=== PATIENT | female | born 1995 | race Caucasian/White ===

== ENCOUNTER → 2016-07-12 | Outpatient (CLI) | payer BC ==
[~2016-07-12] MED LIST: ADAL40KI IM; AMOX875T PO; BNT10 PO; DICY10CA12 PO; IRON PO; MESA1.2T PO; MRC50 PO; NORE1TAB50 PO
[2016-07-12 11:08] LABS: BASO % 0.3 %; BASO ABS # 0.03 K/uL (0-0.2); COMPLETE YES; HEMATOCRIT 41.6 % (37-47); IG% 0.3 %; LYMPH % 13.5 %; LYMPH ABS # 1.49 K/uL (1.2-3.4); MEAN CELL VOLUME 89.5 fL (80-100); MEAN CORPUSCULAR HEMOGLOBIN 30.8 pg (25-34); MEAN CORPUSCULAR HGB CONC 34.4 g/dl (32-36); MEAN PLATELET VOLUME 10.4 fL (7.4-10.4); MONO % 8.9 %; PLATELET COUNT 241 K/uL (130-400); RED BLOOD COUNT 4.65 M/uL (4.2-5.4); WHITE BLOOD COUNT 11.01 K/uL (4.8-10.8)
[2016-07-12 11:44] LABS: ALT/SGPT 19 U/L (12-78); AST/SGOT 13 U/L (15-37); BLOOD UREA NITROGEN 8 mg/dl (7-18); BUN/CREATININE RATIO 11.5 (10-20); CALCIUM 9.5 mg/dl (8.5-10.1); CARBON DIOXIDE 28 mmol/L (21-32); CHLORIDE 104 mmol/L (98-107); CREATININE 0.72 mg/dl (0.60-1.20); GLUCOSE 101 mg/dl (70-99); POTASSIUM 3.7 mmol/L (3.5-5.1); SODIUM 140 mmol/L (136-145)
[2016-07-12 11:47] LABS: ALB/GLOB RATIO 1.1 (0.9-2); ALKALINE PHOSPHATASE 65 U/L (45-117); C-REACTIVE PROTEIN < 0.29 mg/dl (0-0.29)
== END | disposition home or self-care (01) ==
LOC: C.LAB1850 10:28
PROVIDERS: ATTEND Internal Medicine
DX: K51.90 Ulcerative colitis, unspecified, without complications (principal)

== ENCOUNTER 2016-09-03 20:38 | Emergency (ER) | payer BC ==
[~2016-09-03] VITALS: Ht 160 cm; Wt 64.4 kg
[~2016-09-03 20:38] MED LIST changes: -AMOX875T PO; -DICY10CA12 PO
[2016-09-03 20:43] VITALS: TEMP 37.2; Ht 160 cm; Wt 64.4 kg
--- NOTE | 2016-09-03 21:11 | EMERGENCY ROOM VISIT NOTE ---
History First contact with patient: 20:57 Chief Complaint: BITE Stated Complaint: SWOLLEN L HAND History of Present Illness The patient is a 20 year old female who presents to the Emergency Room with complaints of cat Bite to the left hand. The patient states that her roommate' s cat bit her hand yesterday around 1 PM. The cat's vaccinations are up-to- date. She was seen at the [facility] on campus and was given a tetanus shot. She was not started on antibiotics. She has developed redness and swelling to the left hand. The patient does take Humira and mercaptopurine. The patient denies any fevers. She denies any streaking. She denies any discharge. She denies any pain currently. She denies any nausea or vomiting. Review of Systems A 10 system review of systems was completed with positives and pertinent negatives listed in the HPI. Past Medical/Surgical History Medical Problems: (1) Colitis (2) Ulcerative colitis Surgical Problems: (1) History of tonsillectomy Family History Diabetes mellitus Heart disease Hypertension Social History Smoking Status: Never Smoker Marital Status: single Housing Status: lives with family Occupation Status: student Current/Historical Medications Scheduled Adalimumab (Humira Pen), 1 DOSE IM [id number] Amoxicillin & Pot Clavulanate (Augmentin 875-125 mg), 1 TAB PO BID Dicyclomine HCl (Dicyclomine HCl), 10 MG PO BID Mercaptopurine (Mercaptopurine), 0.5 TAB PO QAM Mesalamine (Lialda), 2 TAB PO BID Norethindrone (Contraceptive) (Norethindrone), TAB PO DAILY [Iron], 65 MG PO QAM Allergies Coded Allergies: No Known Allergies (Verified , 09/03/16) Physical Exam Vital Signs Date Time Temp Pulse Resp B/P Pulse Ox O2 Delivery O2 Flow Rate FiO2 09/03/16 20:43 37.2 86 18 122/76 99 Room Air Physical Exam VITALS: Vitals are noted on the nurse's note and reviewed by myself. Vital signs stable. Patient is afebrile. GENERAL: This is a 20-year-old female, in no acute distress, nondiaphoretic, well-developed well-nourished. SKIN: There are multiple superficial scratches to the left forearm. There are multiple puncture wounds to the left thumb and left index finger and left hand. There is minimal erythema and minimal swelling. There is no drainage. There is no tenting of the skin. Capillary reflex less than 2 seconds. HEAD: Normocephalic atraumatic. EARS: The external ears are normal in appearance. EYES: Pupils equal round and reactive to light and accommodation. Conjunctivae without injection, sclerae without icterus. Extraocular movements intact. NOSE: Patent, turbinates without inflammation or discharge. MOUTH: Mucous membranes moist. Tonsils are not enlarged. Pharynx without erythema or exudate. Uvula midline. Airway patent. Tongue does not deviate. NECK: Supple without nuchal rigidity. No lymphadenopathy. No thyromegaly. Cervical spine is nontender. No JVD. HEART: Regular rate and rhythm without murmurs gallops or rubs. LUNGS: Clear to auscultation bilaterally without wheezes, rales or rhonchi. No dullness to percussion. No retractions or accessory muscle use. MUSCULOSKELETAL: There is cellulitis, scratches and puncture wounds to the left hand as above. Normal gait. Strength 5/5 throughout. NEURO: Patient was alert and oriented to person place and time. Normal sensation to light and sharp touch. No focal neurological deficits. Medical Decision & Procedures ER Provider Diagnostic Interpretation: LEFT HAND MIN 3 VIEWS ROUTINE CLINICAL HISTORY: left hand cat bite trauma COMPARISON: None DISCUSSION: The bones and joint spaces appear intact. There is no evidence of fracture, dislocation or bony disease. Moderate generalized soft tissue edema IMPRESSION: Soft tissue edema. No acute bony abnormality. Laboratory Results 09/03/16 21:15 Red Blood Count 4.36, Mean Corpuscular Volume 90.4, Mean Corpuscular Hemoglobin 31.0, Mean Corpuscular Hemoglobin Concent 34.3, Mean Platelet Volume 10.4, Neutrophils (%) (Auto) 59.9, Lymphocytes (%) (Auto) 28.4, Monocytes (%) (Auto) 10.5, Eosinophils (%) (Auto) 0.5, Basophils (%) (Auto) 0.4, Neutrophils # (Auto ) 6.13, Lymphocytes # (Auto) 2.90, Monocytes # (Auto) 1.07, Eosinophils # (Auto ) 0.05, Basophils # (Auto) 0.04 09/03/16 21:15 Test 09/03/16 21:15 White Blood Count 10.22 K/uL (4.8-10.8) Red Blood Count 4.36 M/uL (4.2-5.4) Hemoglobin 13.5 g/dL (12.0-16.0) Hematocrit 39.4 % (37-47) Mean Corpuscular Volume 90.4 fL (80-100) Mean Corpuscular Hemoglobin 31.0 pg (25-34) Mean Corpuscular Hemoglobin Concent 34.3 g/dl (32-36) Platelet Count 219 K/uL (130-400) Mean Platelet Volume 10.4 fL (7.4-10.4) Neutrophils (%) (Auto) 59.9 % Lymphocytes (%) (Auto) 28.4 % Monocytes (%) (Auto) 10.5 % Eosinophils (%) (Auto) 0.5 % Basophils (%) (Auto) 0.4 % Neutrophils # (Auto) 6.13 K/uL (1.4-6.5) Lymphocytes # (Auto) 2.90 K/uL (1.2-3.4) Monocytes # (Auto) 1.07 K/uL (0.11-0.59) Eosinophils # (Auto) 0.05 K/uL (0-0.5) Basophils # (Auto) 0.04 K/uL (0-0.2) RDW Standard Deviation 42.9 fL (36.4-46.3) RDW Coefficient of Variation 12.9 % (11.5-14.5) Immature Granulocyte % (Auto) 0.3 % Immature Granulocyte # (Auto) 0.03 K/uL (0.00-0.02) Anion Gap 8.0 mmol/L (3-11) Est Creatinine Clear Calc Drug Dose 133.9 ml/min Estimated GFR () > 150.0 Estimated GFR (Non- 130.3 BUN/Creatinine Ratio 13.8 (10-20) Calcium Level 9.0 mg/dl (8.5-10.1) Total Bilirubin 0.5 mg/dl (0.2-1) Aspartate Amino Transf (AST/SGOT) 18 U/L (15-37) Alanine Aminotransferase (ALT/SGPT) 19 U/L (12-78) Alkaline Phosphatase 71 U/L (45-117) Total Protein 7.8 gm/dl (6.4-8.2) Albumin 4.3 gm/dl (3.4-5.0) Globulin 3.5 gm/dl (2.5-4.0) Albumin/Globulin Ratio 1.2 (0.9-2) Medications Administered Medications (Trade) Dose Ordered Sig/Brodie Route Start Time Stop Time Status Last Admin Dose Admin Ampicillin Sodium/ Sulbactam Sodium/ Sodium Chloride (Unasyn Inj/Nss 100ml) 108 ml @ 200 mls/hr ONE ONCE IV 09/03/16 21:15 09/03/16 21:47 DC 09/03/16 21:19 200 MLS/HR ED Course The patient was seen and examined. Previous visits were reviewed. The patient does not have a fever or leukocytosis. She does not have any significant electrolyte abnormalities. X-ray of the left hand does not reveal any obvious foreign body or bony abnormality. The patient was given 3 g IV Unasyn The patient does have cellulitis from a cat bite to the left hand. There is no lymphangitic streaking. She does not have any obvious abscess and has only minimal swelling. It is concerning that the patient does take a biologic and is immunocompromised. I offered admission to the hospital or to return in 24 hours for recheck and potential additional IV antibiotics and admission as needed. They referred to go home and return in 24 hours for recheck. She will be placed on Augmentin. She declined pain medication. She should return sooner with any worsening symptoms. The case was discussed with Dr. Epps who agrees with the assessment and treatment plan Medical Decision Differential diagnosis includes cellulitis, foreign body, osteomyelitis, among others Impression Primary Impression: Cat bite Additional Impression: Cellulitis Departure Information Dispostion Home / Self-Care Condition GOOD Prescriptions Amoxicillin & Pot Clavulanate (Augmentin 875-125 mg) 1 Tab Tab 1 TAB PO BID for 10 Days, #20 TAB Prov: Yesenia Chan PA-C 09/03/16 Referrals Gaston Veloz M.D. (PCP) Patient Instructions Cellulitis - [facility], ED Bite Cat, My [facility] [employer] Additional Instructions Start the abdomen in 6 hours Then, Augmentin 1 tablet every 12 hours for 10 days Ibuprofen 600 mg every 6-8 hours for moderate pain Return to the emergency department in 24 hours for a recheck Return sooner with any worsening redness, swelling, warmth Problem Qualifiers Primary Impression: Cat bite Encounter type: initial encounter Qualified Codes: W55.01XA - Bitten by cat , initial encounter Additional Impression: Cellulitis Site of cellulitis: extremity Site of cellulitis of extremity: upper extremity Laterality: left Qualified Codes: L03.114 - Cellulitis of left upper limb
[2016-09-03] MEDS ORDERED: AMPICILLIN/SULBACTAM SOD INJ 3,000 MG in SODIUM CHLORIDE 0.9% 100ML 100 ML IV ONE (21:15)
[2016-09-03 21:30] LABS: BASO % 0.4 %; BASO ABS # 0.04 K/uL (0-0.2); COMPLETE YES; EOS % 0.5 %; HEMATOCRIT 39.4 % (37-47); IG% 0.3 %; LYMPH % 28.4 %; MEAN CELL VOLUME 90.4 fL (80-100); MEAN CORPUSCULAR HGB CONC 34.3 g/dl (32-36); MEAN PLATELET VOLUME 10.4 fL (7.4-10.4); MONO % 10.5 %; NEUT % 59.9 %; PLATELET COUNT 219 K/uL (130-400); RED BLOOD COUNT 4.36 M/uL (4.2-5.4); WHITE BLOOD COUNT 10.22 K/uL (4.8-10.8)
[2016-09-03 21:48] LABS: ALT/SGPT 19 U/L (12-78); BLOOD UREA NITROGEN 8 mg/dl (7-18); BUN/CREATININE RATIO 13.8 (10-20); CARBON DIOXIDE 27 mmol/L (21-32); CHLORIDE 106 mmol/L (98-107); GLUCOSE 87 mg/dl (70-99); POTASSIUM 3.3 mmol/L (3.5-5.1); SODIUM 141 mmol/L (136-145)
--- NOTE | 2016-09-03 21:48 | DIAGNOSTIC IMAGING REPORT ---
LEFT HAND MIN 3 VIEWS ROUTINE CLINICAL HISTORY: left hand cat bite trauma COMPARISON: None DISCUSSION: The bones and joint spaces appear intact. There is no evidence of fracture, dislocation or bony disease. Moderate generalized soft tissue edema IMPRESSION: Soft tissue edema. No acute bony abnormality. Electronically signed by: Sam French M.D. 09/03/2016 9:47 PM Dictated Date/Time: 09/03/2016 9:46 PM
[2016-09-03 21:51] LABS: ALB/GLOB RATIO 1.2 (0.9-2); ALKALINE PHOSPHATASE 71 U/L (45-117); AST/SGOT 18 U/L (15-37)
[2016-09-03] MEDS ORDERED: AMOX875T PO (22:14)
[2016-09-03] MEDS ORDERED: AMOXICIL/CLAVU 875MG HOME PACK PO ONE (22:15)
[2016-09-03 22:47] VITALS: BP 128/84; PULSE 78; O2SAT 100
[2017-01-11] MEDS ORDERED: DICY10CA12 PO (10:24)
== END 2016-09-03 22:47 | disposition home or self-care (01) ==
LOC: C.EDB 20:39
DX: L03.114 Cellulitis of left upper limb (principal); W55.01XA Bitten by cat, initial encounter; Z87.19 Personal history of other diseases of the digestive system; Z98.890 Other specified postprocedural states; Z79.899 Other long term (current) drug therapy; Z83.3 Family history of diabetes mellitus; Z82.49 Family history of ischemic heart disease and other diseases of the circulatory system

== ENCOUNTER 2016-09-05 13:25 | Emergency (ER) | payer BC ==
[~2016-09-05] VITALS: Ht 160 cm; Wt 64.6 kg
[~2016-09-05 13:25] MED LIST changes: +AMOX875T PO
[2016-09-05 13:28] VITALS: Ht 160 cm; Wt 64.6 kg
--- NOTE | 2016-09-05 14:16 | EMERGENCY ROOM VISIT NOTE ---
History First contact with patient: 13:31 Chief Complaint: WOUND RECHECK Stated Complaint: SWELLING TO LEFT HAND-RECHECK Nursing Triage Summary: Pt was seen here for cat bites to left hand Pt is back for recheck History of Present Illness The patient is a 20 year old female who presents to the Emergency Room via private vehicle accompanied by mother with complaints of "swelling to left hand- recheck". The patient states that she was seen here Tuesday (09/03/16) for a cat Bite to the left hand which was sustained the day prior at 4:30PM. She states that she received an IV dose of antibiotic, because her family doctor encouraged her to come in as she is on Humira. She states that she was discharged home on Augmentin, and has been taking for 2 days now. She feels that the bite on her left hand is improving, with decreased swelling and redness. She feels that there is also decreased pain. She has been tolerating the Augmentin well. She has had not taken Humira for the past 2 days, and questions whether or not it should be restarted. She denies any fevers, chills , chest pain, shortness of breath. Review of Systems A complete 6-point Review of Systems was discussed with the patient, with pertinent positives and negatives listed in the History of Present Illness. All remaining Review of Systems questions can be considered negative unless otherwise specified. Past Medical/Surgical History Medical Problems: (1) Colitis (2) Ulcerative colitis Surgical Problems: (1) History of tonsillectomy Family History Diabetes mellitus Heart disease Hypertension Social History Smoking Status: Never Smoker Marital Status: single Housing Status: lives with family Occupation Status: student Current/Historical Medications Scheduled Adalimumab (Humira Pen), 1 DOSE IM [id number] Amoxicillin & Pot Clavulanate (Augmentin 875-125 mg), 1 TAB PO BID Dicyclomine HCl (Dicyclomine HCl), 10 MG PO BID Mercaptopurine (Mercaptopurine), 0.5 TAB PO QAM Mesalamine (Lialda), 2 TAB PO BID Norethindrone (Contraceptive) (Norethindrone), TAB PO DAILY [Iron], 65 MG PO QAM Allergies Coded Allergies: No Known Allergies (Verified , 09/05/16) Physical Exam Vital Signs Date Time Temp Pulse Resp B/P Pulse Ox O2 Delivery O2 Flow Rate FiO2 09/05/16 14:27 62 16 108/62 100 09/05/16 13:28 58 18 111/69 99 Room Air Physical Exam VITAL SIGNS - Vital signs and nursing notes were reviewed. Temperature was not taken in triage as the patient had taken a drink of a cold liquid, and was repeated upon her stay here and was noted to be 37.6. She clinically appears well. GENERAL -20-year-old female appearing her stated age who is in no acute distress. Communicates well with provider and answers questions appropriately. SKIN - there are evidence of well-healing puncture wounds to the services of the left hand. There is minimal edema, no erythema. No signs of worsening infection. The hand does appear to be improving. HEAD - NC/AT. LUNGS - Chest wall symmetric without accessory muscle use, intercostals retractions, or central cyanosis. Normal vesicular breath sounds CTA B/L. No wheezes, rales, or rhonchi appreciated. CARDIAC - RRR with S1/S2. No murmur, rubs, or gallops appreciated. EXTREMITIES - No clubbing or peripheral cyanosis. No pretibial edema present. She is vascularly intact in the left upper extremity. Minimal tenderness left hand. Near full range of motion of the left hand. There is no lymphangitic streaking. Medical Decision & Procedures Medical Decision Patient was seen and evaluated as above. Previous visit was reviewed. The patient appears to have good clinical improvement with by mouth Augmentin while withholding the Humira. I did elect to discuss the case with the on-call GI specialist who is covering for Dr. Paredes, the GI specialist who placed the patient on Humira. I spoke with Dr. Gail Lehman, who recommended that the patient hold Humira for another 5 days, which would make one week total. The patient also notes that she has an appointment tomorrow with Dr. paredes's office. I do not believe that the patient at this time requires inpatient management for the hand. She was offered admission at 1413, and declined and I believe this was appropriate. The patient is a follow-up with her family doctor on Tuesday or Tuesday of this week for recheck or return here for worsening symptoms. She seemed happy with plan of care, was educated upon worrisome symptoms which to return, and was discharged home in good condition. I do believe that the patient is stable for discharge. In the evaluation and treatment of this patient the following differential diagnoses were entertained: Healing cellulitis of left hand, bite, among others. Impression Primary Impression: Encounter for wound re-check Departure Information Dispostion Home / Self-Care Condition GOOD Referrals Sohan Veloz M.D. (PCP) Patient Instructions My [facility] Additional Instructions You were seen in the emergency Department for a recheck of the cat bite to your left hand. It appears that the bite wound is improving. Please continue the Augmentin for its full duration. The case was discussed with one of the physicians that participates with Dr. paredes, is recommended that you resume the Humira in 5 days from today's date. Please keep your appointment tomorrow with the GI specialist. Please follow up with her family doctor on Tuesday or Tuesday for recheck of the wound, or return here for any worsening. Please return to the emergency department for any new/concerning symptoms. Thank you for your time.
[2016-09-05 14:27] VITALS: BP 108/62; PULSE 62; O2SAT 100
[2017-01-11] MEDS ORDERED: DICY10CA12 PO (10:24)
== END 2016-09-05 14:27 | disposition home or self-care (01) ==
LOC: C.EDB 13:27 → C.EDD 14:27
DX: Z09 Encounter for follow-up examination after completed treatment for conditions other than malignant neoplasm (principal); K51.90 Ulcerative colitis, unspecified, without complications; Z90.89 Acquired absence of other organs; Z83.3 Family history of diabetes mellitus; Z82.49 Family history of ischemic heart disease and other diseases of the circulatory system; Z79.899 Other long term (current) drug therapy

== ENCOUNTER 2016-11-20 20:28 | Emergency (ER) | payer BC ==
[~2016-11-20] VITALS: Ht 160 cm; Wt 64.5 kg
[~2016-11-20 20:28] MED LIST changes: -AMOX875T PO
[2016-11-20 20:31] VITALS: TEMP 36.9; Ht 160 cm; Wt 64.5 kg
[2016-11-20] MEDS ORDERED: SODIUM CHLORIDE 0.9% 1000ML 1,000 ML IV STA (20:56)
[2016-11-20] MEDS ORDERED: SODIUM CHLORIDE 0.9% 1000ML 1,000 ML IV ONE (20:56)
[2016-11-20] MEDS ORDERED: ONDANSETRON INJ 2 MG/ML 2 ML VIAL IV STA (20:56)
--- NOTE | 2016-11-20 21:10 | DIAGNOSTIC IMAGING REPORT ---
CHEST ONE VIEW PORTABLE CLINICAL HISTORY: CHEST PAIN dyspnea COMPARISON STUDY: 06/29/2015 FINDINGS: The bones soft tissues and hemidiaphragms are normal. The cardiomediastinal silhouette is normal. The lungs are clear. The pulmonary vasculature is normal. IMPRESSION: Negative chest. Electronically signed by: Sam French M.D. 11/20/2016 9:09 PM Dictated Date/Time: 11/20/2016 9:08 PM
[2016-11-20 21:39] LABS: BASO % 0.4 %; BASO ABS # 0.04 K/uL (0-0.2); COMPLETE YES; EOS % 0.5 %; HEMATOCRIT 43.3 % (37-47); IG% 0.2 %; LYMPH % 15.5 %; LYMPH ABS # 1.48 K/uL (1.2-3.4); MEAN CELL VOLUME 90.8 fL (80-100); MEAN CORPUSCULAR HEMOGLOBIN 31.9 pg (25-34); MEAN CORPUSCULAR HGB CONC 35.1 g/dl (32-36); MEAN PLATELET VOLUME 11.1 fL (7.4-10.4); MONO % 6.5 %; NEUT % 76.9 %; PLATELET COUNT 223 K/uL (130-400); RED BLOOD COUNT 4.77 M/uL (4.2-5.4); WHITE BLOOD COUNT 9.55 K/uL (4.8-10.8)
[2016-11-20 21:42] LABS: PREG INTERNAL NEGATIVE QC NEG CLEAR BACKGROUND; PREG INTERNAL POSITIVE QC POS CONTROL LINE
[2016-11-20 21:44] LABS: ALKALINE PHOSPHATASE 52 U/L (45-117); ALT/SGPT 18 U/L (12-78); BLOOD UREA NITROGEN 6 mg/dl (7-18); BUN/CREATININE RATIO 8.3 (10-20); CARBON DIOXIDE 25 mmol/L (21-32); CHLORIDE 103 mmol/L (98-107); CREATININE 0.69 mg/dl (0.60-1.20); GLUCOSE 92 mg/dl (70-99); SODIUM 137 mmol/L (136-145)
[2016-11-20] MEDS ORDERED: ONDANSETRON HOME PACK 4MG OD TAB PO ONE (22:00)
[2016-11-20 22:12] LABS: CALCIUM 9.6 mg/dl (8.5-10.1)
--- NOTE | 2016-11-20 22:24 | EMERGENCY ROOM VISIT NOTE ---
History Report prepared by Jose Francisco: Anjana Mills Under the Supervision of: Dr. David Shah M.D. First contact with patient: 20:40 Chief Complaint: GI ASSESSMENT Stated Complaint: VOMITING,DIARRHEA History of Present Illness The patient is a 21 year old female who presents to the Emergency Room with complaints of a GI assessment for symptoms that started yesterday. The patient' s mother states that the patient has ulcerative colitis and she is concerned about being immunocompromised secondary to the medications that she is on for it. The patient states that she has a feeling that this is a flare-up of her ulcerative colitis. The patient states that she has been experiencing sinus congestion, dry cough, and sore throat for the past 5 days. She saw her PCP yesterday and tested negative for strep. They started her on a couple medications, including doxycycline in case of a secondary infection. She started to experience nausea, vomiting, and diarrhea after she saw her PCP and started the medications that she was given, so she is unsure of if her symptoms are medication related. She is also experiencing abdominal pain just prior to going to the bathroom. The patient denies fevers, urinary symptoms, hematochezia , and melena. 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 pylori, E. coli, and C. diff. The patient denies any other sick contacts. Source of History: patient, parent (mother) Onset: yesterday Position: abdomen Quality: other (GI assessment) Timing: other (persistent) Associated Symptoms: + cough (dry), + diarrhea, + nausea, + sorethroat, + vomiting, No fevers, No hematochezia, No melena, No urinary symptoms Note: sinus congestion Review of Systems See HPI for pertinent positives & negatives. A total of 10 systems reviewed and were otherwise negative. Past Medical & Surgical Medical Problems: (1) Colitis (2) Ulcerative colitis Surgical Problems: (1) History of tonsillectomy Old medical records were reviewed. Nurse's notes were reviewed and I agree with. Family History Diabetes mellitus Heart disease Hypertension Social History Smoking Status: Never Smoker Marital Status: single Housing Status: lives with family Occupation Status: student Current/Historical Medications Scheduled Adalimumab (Humira Pen), 1 DOSE IM [id number] Dicyclomine HCl (Dicyclomine HCl), 10 MG PO BID Mercaptopurine (Mercaptopurine), 0.5 TAB PO QAM Mesalamine (Lialda), 2 TAB PO BID Norethindrone (Contraceptive) (Norethindrone), TAB PO DAILY [Iron], 65 MG PO QAM Allergies Coded Allergies: No Known Allergies (Verified , 09/05/16) Physical Exam Vital Signs Date Time Temp Pulse Resp B/P Pulse Ox O2 Delivery O2 Flow Rate FiO2 11/20/16 20:31 36.9 98 18 144/84 94 Room Air Physical Exam General: Well developed well nourished non-ill appearing young female with an occasional dry cough but in no acute distress, breathing comfortably on room air. Normal speech HEENT: Normal cephalic atraumatic. Pupils are equal round and reactive to light. Extraocular movements are intact. Oropharynx is pink with moist mucous membranes. No swelling of the mouth lips or tongue. Neck: Supple with a midline trachea. No meningeal signs or stiffness, no JVD or bruits. No Stridor. Chest: Clear to auscultation bilaterally. No wheezes or rhonchi. No increased work of breathing. Heart: regular rate and rhythm. Abdomen: Soft nontender, nondistended without rebound guarding or rigidity. Extremities: No cyanosis clubbing or edema. No calf tenderness or assymetry Spine/Back. Non tender to palpation. No CVA tenderness Skin: Good turgor without rashes. Neurologic exam: Cranial nerves two through 12 are intact. Motor and sensation are intact and symmetrical throughout. Medical Decision & Procedures ER Provider Diagnostic Interpretation: X-ray results as stated below per interpretation by me and the radiologist: CHEST ONE VIEW PORTABLE FINDINGS: The bones soft tissues and hemidiaphragms are normal. The cardiomediastinal silhouette is normal. The lungs are clear. The pulmonary vasculature is normal. IMPRESSION: Negative chest. Electronically signed by: Sam French M.D. 11/20/2016 9:09 PM Dictated Date/Time: 11/20/2016 9:08 PM Laboratory Results 11/20/16 21:10 Red Blood Count 4.77, Mean Corpuscular Volume 90.8, Mean Corpuscular Hemoglobin 31.9, Mean Corpuscular Hemoglobin Concent 35.1, Mean Platelet Volume 11.1, Neutrophils (%) (Auto) 76.9, Lymphocytes (%) (Auto) 15.5, Monocytes (%) (Auto) 6.5, Eosinophils (%) (Auto) 0.5, Basophils (%) (Auto) 0.4, Neutrophils # (Auto) 7.34, Lymphocytes # (Auto) 1.48, Monocytes # (Auto) 0.62, Eosinophils # (Auto) 0.05, Basophils # (Auto) 0.04 11/20/16 21:10 Test 11/20/16 21:10 White Blood Count 9.55 K/uL (4.8-10.8) Red Blood Count 4.77 M/uL (4.2-5.4) Hemoglobin 15.2 g/dL (12.0-16.0) Hematocrit 43.3 % (37-47) Mean Corpuscular Volume 90.8 fL (80-100) Mean Corpuscular Hemoglobin 31.9 pg (25-34) Mean Corpuscular Hemoglobin Concent 35.1 g/dl (32-36) Platelet Count 223 K/uL (130-400) Mean Platelet Volume 11.1 fL (7.4-10.4) Neutrophils (%) (Auto) 76.9 % Lymphocytes (%) (Auto) 15.5 % Monocytes (%) (Auto) 6.5 % Eosinophils (%) (Auto) 0.5 % Basophils (%) (Auto) 0.4 % Neutrophils # (Auto) 7.34 K/uL (1.4-6.5) Lymphocytes # (Auto) 1.48 K/uL (1.2-3.4) Monocytes # (Auto) 0.62 K/uL (0.11-0.59) Eosinophils # (Auto) 0.05 K/uL (0-0.5) Basophils # (Auto) 0.04 K/uL (0-0.2) RDW Standard Deviation 41.2 fL (36.4-46.3) RDW Coefficient of Variation 12.2 % (11.5-14.5) Immature Granulocyte % (Auto) 0.2 % Immature Granulocyte # (Auto) 0.02 K/uL (0.00-0.02) Anion Gap 9.0 mmol/L (3-11) Est Creatinine Clear Calc Drug Dose 115.5 ml/min Estimated GFR () 143.2 Estimated GFR (Non- 123.6 BUN/Creatinine Ratio 8.3 (10-20) Calcium Level 9.6 mg/dl (8.5-10.1) Total Bilirubin 0.5 mg/dl (0.2-1) Direct Bilirubin mg/dl (0-0.2) Aspartate Amino Transf (AST/SGOT) U/L (15-37) Alanine Aminotransferase (ALT/SGPT) 18 U/L (12-78) Alkaline Phosphatase 52 U/L (45-117) Total Protein 8.6 gm/dl (6.4-8.2) Albumin 3.9 gm/dl (3.4-5.0) Lipase 111 U/L (73-393) Human Chorionic Gonadotropin, Qual NEG (NEG) Laboratory studies as stated above per my review. Medications Administered Medications (Trade) Dose Ordered Sig/Brodie Route Start Time Stop Time Status Last Admin Dose Admin Sodium Chloride (Nss 1000ml) 1,000 ml @ 999 mls/hr Q1H1M STAT IV 11/20/16 20:56 11/20/16 21:56 DC 11/20/16 21:18 999 MLS/HR Ondansetron HCl (Zofran Inj) 4 mg NOW STAT IV 11/20/16 20:56 11/20/16 20:57 DC 11/20/16 21:19 4 MG ED Course 2044: Past medical records reviewed. The patient was evaluated in room C2, and a complete history and physical examination were performed. 2055: Ordered Zofran Inj 4 mg IV, Sodium Chloride 1000 ml @ 200 mls/hr IV, Sodium Chloride 1000 ml @ 999 mls/hr IV 2146: I reassessed the patient. She is feeling a little better. 2155: Discussed patient's case with Dr. Jalen BRO. He told me to tell her to take her Humira. He also recommended giving her a dose of steroids. 2199: Ordered Ondansetron HCl 1 homepack PO, Solu-Medrol 40 mg IM 2200: Upon reevaluation, the patient is feeling better. I discussed the results and treatment plan with the patient and her mother. They verbalized agreement of the treatment plan. The patient was discharged home. Medical Decision Differentials include, but are not limited to; dehydration, exacerbation of ulcerative colitis, infection, electrolyte or metabolic abnormality. This patient comes in as described above. She had URI type symptoms and starting yesterday nausea vomiting diarrhea. She is worried that this could be a flareup of her ulcerative colitis. She normally takes room air but has not taken the last dose because she was sick. She's had no fever. She looks well on exam. Her abdomen is benign and nontender and was reassessed and remained that way. Her occasional dry cough. Chest x-ray was obtained is unremarkable. There is no pneumonia. IV access established, blood work was obtained. She is afebrile and has normal white blood count. She's had no acute electrode or metabolic abnormality otherwise. She is not . Her nausea vomiting diarrhea may be due to the fact that she is overdue on Neyda. It could be a side effect from the medication she started or viral illness. it could be unrelated to her ulcerative colitis potentially. I did review her meds and I talked to Dr. Paredes, her goodwill representative he recommends giving her Solu-Medrol 40 mg IV here and discharging her home, He tells me to ensure that she does take her Neyda. They can follow up with her in the office on Tuesday for recheck. She is to return over the weekend if: worsening of symptoms, not tolerating fluids, fever or chills, any new problems or concerns. Consults Time Called: 2150 Consulting Physician: Dr. Jalen BRO Returned Call: 2155 Discussed patient's case with Dr. Jalen BRO. He told me to tell her to take her Humira. He also recommended giving her a dose of steroids. Impression Primary Impression: Nausea, vomiting, and diarrhea Additional Impressions: Ulcerative colitis Cough Scribe Attestation The scribe's documentation has been prepared under my direction and personally reviewed by me in its entirety. I confirm that the note above accurately reflects all work, treatment, procedures, and medical decision making performed by me. Departure Information Dispostion Home / Self-Care Referrals Sohan Veloz M.D. (PCP) Forms HOME CARE DOCUMENTATION FORM, IMPORTANT VISIT INFORMATION Patient Instructions My [facility] Additional Instructions Rest. Drink plenty of fluids. May use Zofran 4 mg every 6 rate hours if needed for nausea or vomiting Restart your Humira Return if: Worsening of symptoms, fever or chills, not tolerating fluids, any new problems or concerns Follow-up with Dr. paredes or his office on Tuesday or Tuesday Problem Qualifiers Additional Impressions: Ulcerative colitis Ulcerative colitis location: unspecified ulcerative colitis location Digestive disease complication type: unspecified complication Qualified Codes : K51.919 - Ulcerative colitis, unspecified with unspecified complications
[2016-11-20 22:35] VITALS: BP 128/75; PULSE 90; O2SAT 98
[2016-11-20] MEDS ORDERED: NURSING VERBAL MED ORDER ONE (22:45)
[2017-01-11] MEDS ORDERED: DICY10CA12 PO (10:24)
== END 2016-11-20 22:35 | disposition home or self-care (01) ==
LOC: C.EDB 20:30 → C.EDC 22:35
DX: R11.2 Nausea with vomiting, unspecified (principal); R19.7 Diarrhea, unspecified; K51.919 Ulcerative colitis, unspecified with unspecified complications; R05 Cough; Z83.3 Family history of diabetes mellitus; Z82.49 Family history of ischemic heart disease and other diseases of the circulatory system; Z79.899 Other long term (current) drug therapy

== ENCOUNTER → 2016-11-24 | Outpatient (CLI) | payer BC ==
[~2016-11-24] MED LIST changes: +DICY10CA12 PO
[2016-11-24 17:35] LABS: BASO % 0.4 %; BASO ABS # 0.03 K/uL (0-0.2); COMPLETE YES; EOS % 1.6 %; HEMATOCRIT 40.4 % (37-47); IG% 0.4 %; LYMPH % 34.8 %; LYMPH ABS # 2.75 K/uL (1.2-3.4); MEAN CELL VOLUME 91.6 fL (80-100); MEAN CORPUSCULAR HEMOGLOBIN 31.1 pg (25-34); MEAN CORPUSCULAR HGB CONC 33.9 g/dl (32-36); MEAN PLATELET VOLUME 10.5 fL (7.4-10.4); NEUT % 53.8 %; PLATELET COUNT 261 K/uL (130-400); RED BLOOD COUNT 4.41 M/uL (4.2-5.4); WHITE BLOOD COUNT 7.91 K/uL (4.8-10.8)
[2016-11-24 18:15] LABS: ALT/SGPT 17 U/L (12-78); AST/SGOT 12 U/L (15-37); BLOOD UREA NITROGEN 7 mg/dl (7-18); BUN/CREATININE RATIO 10.8 (10-20); CARBON DIOXIDE 30 mmol/L (21-32); CHLORIDE 107 mmol/L (98-107); CREATININE 0.62 mg/dl (0.60-1.20); GLUCOSE 85 mg/dl (70-99); POTASSIUM 3.5 mmol/L (3.5-5.1); SODIUM 142 mmol/L (136-145)
[2016-11-24 18:18] LABS: ALB/GLOB RATIO 0.9 (0.9-2); ALKALINE PHOSPHATASE 44 U/L (45-117); C-REACTIVE PROTEIN < 0.29 mg/dl (0-0.29)
== END | disposition home or self-care (01) ==
LOC: C.LAB1850 16:55
PROVIDERS: ATTEND Registered Nurse
DX: K51.90 Ulcerative colitis, unspecified, without complications (principal)

== ENCOUNTER → 2017-01-17 | Day surgery (SDC) | payer BC ==
[2017-01-11 10:27] VITALS: BMI 23.0
[~2017-01-17] VITALS: Ht 160 cm; Wt 59.1 kg
[~2017-01-17] MED LIST changes: -BNT10 PO; +LIDOCAINE HCL 2% 2 ML VIAL (20MG/ML) ONE; +PROPOFOL IV EMULSION 10 MG/ML 20 ML VIAL IV ONE; +SODIUM CHLORIDE 0.9% 500ML 500 ML IV ONE
[2017-01-17 12:54] VITALS: Ht 160 cm; Wt 59.1 kg
[2017-01-17 13:03] VITALS: TEMP 36.8
--- NOTE | 2017-01-17 13:19 | Endo History and Physical ---
History & Physical Date of Service: Jan 17, 2017. Chief Complaint: Hx ulcerative colitis Referring Physician: Dr. Gaston Veloz History of Present Illness 21 yo CF who presents for colonoscopy secondary to ulcerative colitis. Past Medical History Gastrointestinal Disorder Past Surgical History Hx Cardiac Surgery: No Hx Internal Defibrillator: No Hx Pacemaker: No Hx Abdominal Surgery: No Hx of Implantable Prosthesis: No Hx Post-Op Nausea and Vomiting: No Hx Cancer Surgery: No Hx Thoracic Surgery: No Hx Orthopedic: No Hx Urinary Tract Surgery: No Family History IBD Social History Smoking Status: Never Smoker Hx Substance Use: No Hx Alcohol Use: No Allergies Coded Allergies: No Known Allergies (Verified , 01/11/17) Current Medications Reported Home Medications Medications Dose Route/Sig Max Daily Dose Days Date Category Dicyclomine Hcl 10 Mg Cap 1 Cap PO BID 01/11/17 Reported Norethindrone (Norethindrone (Contraceptive)) 0.35 Mg Tab 1 Tab PO HS 03/22/16 Reported Humira Pen (Adalimumab) 40 Mg/0.8 Ml Kit 1 Dose IM [id number] 03/10/16 Reported Mercaptopurine 50 Mg Tab 0.5 Tab PO QAM 03/10/16 Reported [Iron] 65 Mg PO QAM 03/10/16 Reported Lialda (Mesalamine) 1.2 Gm Tab 2 Tab PO BID 03/10/16 Reported Vital Signs Weight (Kilograms): 59.09 Height (Feet): 5 Height (Inches): 3 Date Time Temp Pulse Resp B/P (MAP) Pulse Ox O2 Delivery O2 Flow Rate FiO2 01/17/17 13:03 36.8 66 20 118/62 (80) 98 Room Air Physical Exam General Appearance: WD/WN, no apparent distress Respiratory/Chest: Auscultation: breath sounds normal Cardiovascular: Heart Auscultation: RRR Abdomen: Bowel Sounds: normal Inspection & Palpation: soft, non-distended, no tenderness, guarding & rebound Assessment and Plan Assessment: 21 yo CF who presents for colonoscopy secondary to ulcerative colitis. Plan: Proceed with colonoscopy.
--- NOTE | 2017-01-17 13:51 | Discharge Instructions ---
Endoscopy Patient Instructions Date / Procedure(s) Performed Jan 17, 2017. Colonoscopy Allergy Information Coded Allergies: No Known Allergies (Verified , 01/11/17) Discharge Date / Findings Jan 17, 2017. Random colon biopsies secondary to ulcerative colitis. Medication Instructions OK to resume all medications today as prescribed Reported Home Medications Medications Dose Route/Sig Max Daily Dose Days Date Category Dicyclomine Hcl 10 Mg Cap 1 Cap PO BID 01/11/17 Reported Norethindrone (Norethindrone (Contraceptive)) 0.35 Mg Tab 1 Tab PO HS 03/22/16 Reported Humira Pen (Adalimumab) 40 Mg/0.8 Ml Kit 1 Dose IM [id number] 03/10/16 Reported Mercaptopurine 50 Mg Tab 0.5 Tab PO QAM 03/10/16 Reported [Iron] 65 Mg PO QAM 03/10/16 Reported Lialda (Mesalamine) 1.2 Gm Tab 2 Tab PO BID 03/10/16 Reported Provider Instructions Activity Restrictions - No exercising or heavy lifting for 24 hours. - Do not drink alcohol the day of the procedure. - Do not drive a car or operate machinery until the day after the procedure. - Do not make any important decisions or sign important papers in 24 hours after the procedure. Following Day: - Return to full activity which may include returning to work/school. Diet Start your diet with liquids and light foods (jello, soup, juice, toast). Then eat your usual diet if not nauseated. Treatment For Common After Affects For mild abdominal pain, bloating, or excessive gas: - Rest - Eat lightly - Lie on right side Follow-Up Information Follow-up with Dr. Gaston Veloz as scheduled Anesthesia Information What You Should Know You have had a procedure that required some medicine to reduce anxiety and discomfort. This treatment is called moderate sedation. After receiving the treatment, you may be sleepy, but you will be able to breathe on your own. The effects of the treatment may last for several hours. Follow these instructions along with Activity/Diet recommendations noted above: * Do NOT do anything where dizziness or clumsiness would be dangerous. * Rest quietly at home today, then you can be up and about tomorrow. * Have a responsible person stay with you the rest of today. * You may have had an I.V. today. If so, you may take the dressing off later today. Recommendations Call your doctor if: * Trouble breathing * Continuous vomiting for more than 24 hours * Temperature above 101 degrees * Severe abdominal pain or bloating * Pain not relieved by pain medicine ordered * There is increased drainage or redness from any incision * A large amount of rectal bleeding greater than 2-3 tablespoons. (If you had a polyp/s removed or have hemorrhoids, a small amount of blood - from the rectum is to be expected.) * You have any unanswered questions or concerns. IN THE EVENT OF A SERIOUS EMERGENCY, GO TO THE NEAREST EMERGENCY ROOM Your discharge instructions were prepared by provider Arun Rao. Patient Instructions Signature Page Donita Barillas Patient (or Guardian) Signature/Date: I have read and understand the instructions given to me by my caregivers. Caregiver/RN/Doctor Signature/Date: The above-named patient and/or guardian has received patient instructions on this date. + Original Patient Signature Page (only) stays with chart. Please make copy for patient.
--- NOTE | 2017-01-17 13:51 | GI REPORT ---
Procedure Date: 01/17/2017 1:25 PM Procedure: Colonoscopy Indications: Follow-up of chronic ulcerative pancolitis Medicines: Monitored Anesthesia Care Complications: No immediate complications. Estimated Blood Loss: Estimated blood loss: none. Procedure: Pre-Anesthesia Assessment: - Prior to the procedure, a History and Physical was performed, and patient medications and allergies were reviewed. The patient's tolerance of previous anesthesia was also reviewed. The risks and benefits of the procedure and the sedation options and risks were discussed with the patient. All questions were answered, and informed consent was obtained. Prior Anticoagulants: The patient has taken no previous anticoagulant or antiplatelet agents. ASA Grade Assessment: II - A patient with mild systemic disease. After reviewing the risks and benefits, the patient was deemed in satisfactory condition to undergo the procedure. After I obtained informed consent, the scope was passed under direct vision. Throughout the procedure, the patient's blood pressure, pulse, and oxygen saturations were monitored continuously. The scope was introduced through the anus and advanced to the terminal ileum. The colonoscopy was performed without difficulty. The patient tolerated the procedure well. The quality of the bowel preparation was good. The terminal ileum, ileocecal valve, appendiceal orifice, and rectum were photographed. Findings: Inflammation characterized by erythema, pseudopolyps and scarring was found in a continuous and circumferential pattern from the rectum to the cecum. This was mild in severity, and when compared to previous examinations, the findings are improved. Biopsies were taken with a cold forceps for histology. Impression: - Inflammation was found from the rectum to the cecum. The findings are improved compared to previous examinations. Biopsied. Recommendation: - Resume previous diet. - Continue present medications. - Repeat colonoscopy for surveillance based on pathology results. - Return to primary care physician as previously scheduled. Arun Rao DO 01/17/2017 1:50:44 PM This report has been signed electronically. Note Initiated On: 01/17/2017 1:25 PM I attest to the content of the Intraoperative Record and orders documented therein, exceptions below
--- NOTE | 2017-01-17 14:06 | Anesthesiology Progress Note ---
Anesthesia Post Op Note Date & Time Jan 17, 2017 at 14:06 Vital Signs Pain Intensity: 0 Vital Signs Past 12 Hours Date Time Temp Pulse Resp B/P (MAP) Pulse Ox O2 Delivery O2 Flow Rate FiO2 01/17/17 13:55 78 16 114/67 (83) 100 Room Air 01/17/17 13:03 36.8 66 20 118/62 (80) 98 Room Air Notes Mental Status: alert / awake / arousable, participated in evaluation Pt Amnestic to Procedure: Yes Nausea / Vomiting: adequately controlled Pain: adequately controlled Airway Patency, RR, SpO2: stable & adequate BP & HR: stable & adequate Hydration State: stable & adequate Anesthetic Complications: no major complications apparent
[2017-01-17 14:25] VITALS: BP 123/77; PULSE 59; O2SAT 100
== END | disposition home or self-care (01) ==
LOC: C.GI 12:35
PROVIDERS: ATTEND Internal Medicine
DX: K51.00 Ulcerative (chronic) pancolitis without complications (principal); Z83.79 Family history of other diseases of the digestive system

== ENCOUNTER → 2017-04-25 | Outpatient (CLI) | payer BC ==
[~2017-04-25] MED LIST changes: -LIDOCAINE HCL 2% 2 ML VIAL (20MG/ML) ONE; -PROPOFOL IV EMULSION 10 MG/ML 20 ML VIAL IV ONE; -SODIUM CHLORIDE 0.9% 500ML 500 ML IV ONE
[2017-04-25 12:16] LABS: BASO % 0.7 %; BASO ABS # 0.04 K/uL (0-0.2); COMPLETE YES; EOS % 1.7 %; HEMATOCRIT 39.6 % (37-47); IG% 0.2 %; LYMPH % 33.1 %; LYMPH ABS # 1.79 K/uL (1.2-3.4); MEAN CELL VOLUME 93.8 fL (80-100); MEAN CORPUSCULAR HEMOGLOBIN 30.8 pg (25-34); MEAN CORPUSCULAR HGB CONC 32.8 g/dl (32-36); MONO % 9.6 %; NEUT % 54.7 %; PLATELET COUNT 223 K/uL (130-400); RED BLOOD COUNT 4.22 M/uL (4.2-5.4)
[2017-04-25 12:26] LABS: ALT/SGPT 16 U/L (12-78); AST/SGOT 10 U/L (15-37); BLOOD UREA NITROGEN 12 mg/dl (7-18); BUN/CREATININE RATIO 19.6 (10-20); CALCIUM 8.8 mg/dl (8.5-10.1); CARBON DIOXIDE 25 mmol/L (21-32); CHLORIDE 106 mmol/L (98-107); CREATININE 0.63 mg/dl (0.60-1.20); GLUCOSE 87 mg/dl (70-99); POTASSIUM 4.1 mmol/L (3.5-5.1); SODIUM 139 mmol/L (136-145)
[2017-04-25 12:28] LABS: ALKALINE PHOSPHATASE 47 U/L (45-117); C-REACTIVE PROTEIN < 0.29 mg/dl (0-0.29)
== END | disposition home or self-care (01) ==
LOC: C.LAB1850 10:15
PROVIDERS: ATTEND Registered Nurse
DX: K51.90 Ulcerative colitis, unspecified, without complications (principal)

== ENCOUNTER → 2017-11-04 | Outpatient (CLI) | payer BC | END | disposition home or self-care (01) | LOC: C.LABPBG 08:24 | PROVIDERS: ATTEND Physician Assistant | DX: Z02.89 Encounter for other administrative examinations (principal) ==

== ENCOUNTER → 2017-11-21 | Outpatient (CLI) | payer BC ==
[2017-11-21 12:37] LABS: BASO % 0.3 %; BASO ABS # 0.03 K/uL (0-0.2); EOS % 2.3 %; EOS ABS # 0.22 K/uL (0-0.5); HEMOGLOBIN 14.5 g/dL (12.0-16.0); IG# 0.02 K/uL (0.00-0.02); LYMPH % 27.3 %; LYMPH ABS # 2.62 K/uL (1.2-3.4); MEAN CELL VOLUME 94.2 fL (80-100); MEAN CORPUSCULAR HEMOGLOBIN 32.5 pg (25-34); MEAN CORPUSCULAR HGB CONC 34.5 g/dl (32-36); MEAN PLATELET VOLUME 10.5 fL (7.4-10.4); MONO % 8.5 %; MONO ABS # 0.82 K/uL (0.11-0.59); NEUT % 61.4 %; NEUT ABS # 5.89 K/uL (1.4-6.5); PLATELET COUNT 235 K/uL (130-400); RED CELL DISTRIBUTION WIDTH CV 13.1 % (11.5-14.5)
[2017-11-21 13:12] LABS: ALBUMIN 3.8 gm/dl (3.4-5.0); ALKALINE PHOSPHATASE 30 U/L (45-117); ALT/SGPT 15 U/L (12-78); AST/SGOT 14 U/L (15-37); BLOOD UREA NITROGEN 9 mg/dl (7-18); CALCIUM 9.1 mg/dl (8.5-10.1); CARBON DIOXIDE 26 mmol/L (21-32); CREATININE 0.74 mg/dl (0.60-1.20); GLUCOSE 82 mg/dl (70-99); POTASSIUM 3.5 mmol/L (3.5-5.1); SODIUM 136 mmol/L (136-145)
== END | disposition home or self-care (01) ==
LOC: C.LAB1850 11:21
PROVIDERS: ATTEND Registered Nurse
DX: Z01.419 Encounter for gynecological examination (general) (routine) without abnormal findings (principal); K51.90 Ulcerative colitis, unspecified, without complications

== ENCOUNTER → 2017-11-21 | Outpatient (CLI) | payer BC | END | disposition home or self-care (01) | LOC: C.PAPS 13:13 | PROVIDERS: ATTEND Physician Assistant | DX: Z01.419 Encounter for gynecological examination (general) (routine) without abnormal findings (principal) ==

== ENCOUNTER → 2018-01-21 | Outpatient (CLI) | payer BC ==
[~2018-01-21] MED LIST changes: +FERR1TAB23 PO; -IRON PO; +NORE-38 PO; -NORE1TAB50 PO; +PRED10TA PO
[2018-01-21 14:51] LABS: ALKALINE PHOSPHATASE 31 U/L (45-117); ALT/SGPT 22 U/L (12-78); AST/SGOT 13 U/L (15-37); BLOOD UREA NITROGEN 11 mg/dl (7-18); CALCIUM 8.8 mg/dl (8.5-10.1); CARBON DIOXIDE 28 mmol/L (21-32); CREATININE 0.75 mg/dl (0.60-1.20); GLUCOSE 123 mg/dl (70-99); POTASSIUM 4.2 mmol/L (3.5-5.1); SODIUM 138 mmol/L (136-145); TOTAL PROTEIN 7.2 gm/dl (6.4-8.2)
[2018-01-21 15:05] LABS: BASO % 0.2 %; BASO ABS # 0.02 K/uL (0-0.2); EOS % 0.1 %; EOS ABS # 0.01 K/uL (0-0.5); HEMATOCRIT 38.1 % (37-47); HEMOGLOBIN 12.5 g/dL (12.0-16.0); IG# 0.12 K/uL (0.00-0.02); LYMPH % 9.6 %; LYMPH ABS # 0.93 K/uL (1.2-3.4); MEAN CELL VOLUME 94.8 fL (80-100); MEAN CORPUSCULAR HEMOGLOBIN 31.1 pg (25-34); MEAN CORPUSCULAR HGB CONC 32.8 g/dl (32-36); MEAN PLATELET VOLUME 9.3 fL (7.4-10.4); MONO % 4.1 %; NEUT % 84.8 %; PLATELET COUNT 365 K/uL (130-400); RED CELL DISTRIBUTION WIDTH CV 13.7 % (11.5-14.5); RED CELL DISTRIBUTION WIDTH SD 47.5 fL (36.4-46.3); WHITE BLOOD COUNT 9.68 K/uL (4.8-10.8)
== END | disposition home or self-care (01) ==
LOC: C.LAB 13:39
PROVIDERS: ATTEND Registered Nurse
DX: K51.90 Ulcerative colitis, unspecified, without complications (principal)

== ENCOUNTER → 2018-02-24 | Outpatient (CLI) | payer BC ==
[2018-02-24 17:16] LABS: BASO % 0.9 %; BASO ABS # 0.07 K/uL (0-0.2); EOS % 9.5 %; EOS ABS # 0.76 K/uL (0-0.5); HEMATOCRIT 41.8 % (37-47); HEMOGLOBIN 13.5 g/dL (12.0-16.0); IG# 0.02 K/uL (0.00-0.02); LYMPH % 29.5 %; LYMPH ABS # 2.36 K/uL (1.2-3.4); MEAN CELL VOLUME 95.2 fL (80-100); MEAN CORPUSCULAR HEMOGLOBIN 30.8 pg (25-34); MEAN CORPUSCULAR HGB CONC 32.3 g/dl (32-36); MEAN PLATELET VOLUME 10.7 fL (7.4-10.4); MONO % 9.6 %; MONO ABS # 0.77 K/uL (0.11-0.59); NEUT % 50.2 %; NEUT ABS # 4.01 K/uL (1.4-6.5); PLATELET COUNT 290 K/uL (130-400); RED CELL DISTRIBUTION WIDTH SD 45.7 fL (36.4-46.3); WHITE BLOOD COUNT 7.99 K/uL (4.8-10.8)
[2018-02-24 17:51] LABS: ALBUMIN 3.4 gm/dl (3.4-5.0); ALKALINE PHOSPHATASE 40 U/L (45-117); ALT/SGPT 13 U/L (12-78); AST/SGOT 9 U/L (15-37); BLOOD UREA NITROGEN 10 mg/dl (7-18); CALCIUM 8.9 mg/dl (8.5-10.1); CARBON DIOXIDE 29 mmol/L (21-32); CREATININE 0.63 mg/dl (0.60-1.20); GLUCOSE 71 mg/dl (70-99); POTASSIUM 3.7 mmol/L (3.5-5.1); SODIUM 141 mmol/L (136-145); TOTAL PROTEIN 7.5 gm/dl (6.4-8.2)
== END | disposition home or self-care (01) ==
LOC: C.LAB1850 15:16
PROVIDERS: ATTEND Internal Medicine
DX: K51.90 Ulcerative colitis, unspecified, without complications (principal)

== ENCOUNTER 2025-06-26 08:25 | Inpatient (IN) ==
[2025-06-26] MEDS ORDERED: OXYTOCIN 30 UNITS/NSS 30 UNITS/500 ML BAG IV PRN ×2 (08:30→17:03)
[2025-06-26] MEDS ORDERED: LIDOCAINE 1% LOCAL 20 ML VIAL INFIL PRN (08:30)
[2025-06-26] MEDS ORDERED: ACETAMINOPHEN 325 MG TAB PO PRN (08:30)
[2025-06-26] MEDS ORDERED: Patient's HEIGHT &/or WEIGHT Needed STA (08:34)
--- NOTE | 2025-06-26 08:43 | History & Physical Report ---
Date of Service June 26, 2025 Assessment & Plan (1) Post-dates : Plan: induction post dates. PCN, pit Admission and Anticipated Discharge Date Admission Date: June 26, 2025 History of Present Illness Primary Care Provider: BENNIE Gonzales FELICIA Calculator Estimated Delivery Date Method Current WG Current Estimate 06/24/25 LMP (Certain) 40w 1d LMP: 09/17/24 : 1 Full term: 0 Premature: 0 Total Number of Induced Abortions: 0 Total Number of Spontaneous Abortions: 0 Ectopics: 0 Multiple births: 0 Number of Living Children: 0 and Delivery Plans Ulcerative Colitis Remicaid *MFM referral 04/11 growth us Q 4 wks. weekly nsts @ 36wks delivery between 39-40 wks---IOL 06/26 per patient request Last infusion 6-8wks before FELICIA (they recommend last one at 34wks) Hepatitis B nonimmune GBS Positive *Treat in Labor Allergies Allergy/AdvReac Type Severity Reaction Status Date / Time No Known Allergies Allergy Verified 06/25/25 10:24 Home Medications Medication Instructions Recorded Confirmed Type infliximab-axxq 100 mg intravenous See Rx Instructions IV .COMPLEX #7 10/06/21 06/25/25 Rx solution (Avsola) ea prenat.vits,monica,azr-ixcp-njlpg 1 tab PO DAILY 11/06/24 06/25/25 History Patient History Medical History (Updated 06/25/25 @ 10:27 by Amarilis Logan LPN) Bronchitis Rash Yeast infection of the vagina COVID-19 (~03/23/22) Fatigue History of Clostridium difficile colitis Surgical History S/P fecal transplant S/P tooth extraction Status post myringotomy with insertion of tube History of tonsillectomy and adenoidectomy H/O colonoscopy (06/2019) multiple Family History Uncle Ulcerative colitis paternal Mother Family history of diabetes mellitus Hypertension Father Diverticulosis Heart disease Other No family history of adverse response to anesthesia Denies family history of Cervical cancer Ovarian cancer Crohn's disease Breast cancer Colorectal cancer Uterine cancer Social History (Updated 06/23/25 @ 05:06 by Tania Chavez RN) Smoking Status: Never smoker Second Hand Exposure: No; Do You Dip or Chew Tobacco: No; Hx Alcohol Use: No Hx Substance Use: No Preferred Language: Malay Communication Ability: Effective Visual Impairment: No Limitations Hearing Ability: Normal Senior Tax Manager Required: No Beliefs That Will Affect Care: None marital status: marital status details: Varun Current Living Situation: Spouse current occupational status: employed 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 Feels Safe at Home: Yes Childhood Exposure to Second-Hand Smoke: No Diet: regular Diet Comment: regular caffeine: Yes during the past year weight has: other Dental Care, Regularly: Yes Physical Activity Frequency: Daily Seatbelt Use: always Sunscreen Use: No Assistive Devices: None Physical Exam Constitutional: WD/WN, vitals as above well developed and well nourished Respiratory: normal respiratory effort, lungs clear to auscultation normal respiratory effort Cardiovascular: RRR, no murmur, no edema Gastrointestinal (Abdomen): normal bowel sounds, soft, nontender, no hepatosplenomegaly Results & Data Vital Signs (Past 12 Hours) Vital Signs Pulse BP 06/26/25 08:34 115 H 120/76 Coding Level of Care Code None Diagnoses Post-dates O48.0
[2025-06-26] MEDS: OXYTOCIN 30 UNITS/NSS 30 UNITS/500 ML BAG IV PRN (08:55)
[2025-06-26] MEDS: LACTATED RINGER'S 1,000 ML IV PRN (08:55)
[2025-06-26 09:00] LABS: Hematocrit (blood only) 36.1 % (37.0-47.0); Hemoglobin 12.9 g/dL (12.0-16.0); Mean Corpuscular Hemoglobin 31.9 pg (25.0-34.0); Mean Corpuscular Volume 89.1 fL (80.0-100.0); Platelet Count 145 K/uL (130-400); RDW Standard Deviation 41.4 fL (36.4-46.3); Red Blood Count 4.05 M/uL (4.20-5.40); White Blood Count 15.29 K/ul (4.8-10.8)
[2025-06-26] MEDS: PENICILLIN GK 6 MU in DEXTROSE 5% 250 ML IV STA (09:25)
[2025-06-26] MEDS ORDERED: diphenhydrAMINE 50 MG/ML VIAL IV PRN (10:01)
[2025-06-26] MEDS ORDERED: fentANYL 2 MCG/ML BUPIVacaine 0.125%-NSS 100ML BAG EPI PRN (10:01)
[2025-06-26] MEDS ORDERED: NALOXONE HCL 1 MG in SODIUM CHLORIDE 0.9% 1,000 ML IV PRN (10:01)
[2025-06-26] MEDS ORDERED: SODIUM CHLORIDE 0.9% PF INJ 10 ML VIAL EPI PRN (10:01)
[2025-06-26] MEDS ORDERED: NALBUPHINE HCL INJ 10 MG/ML AMP IV PRN (10:01)
[2025-06-26] MEDS ORDERED: ROPIVACAINE 0.5% PF 5 MG/ML 20 ML VIAL EPI PRN (10:01)
[2025-06-26] MEDS ORDERED: SODIUM CHLORIDE 0.9% PF INJ 10 ML VIAL EPI STA (10:01)
[2025-06-26] MEDS ORDERED: BUPIVACAINE 0.25% PF 30 ML VIAL EPI STA (10:01)
[2025-06-26] MEDS ORDERED: PROMETHAZINE 6.25 MG/50.25 ML BAG IV PRN (10:01)
[2025-06-26] MEDS ORDERED: BUPIVACAINE 0.25% PF 30 ML VIAL EPI PRN (10:01)
[2025-06-26] MEDS ORDERED: LIDOCAINE 2% MPF LOCAL 5 ML VIAL EPI PRN (10:01)
[2025-06-26] MEDS ORDERED: LIDOCAINE 2%/EPINEPHRINE 1:200,000 20 ML PF EPI STA (10:01)
[2025-06-26] MEDS ORDERED: NALOXONE HCL 0.4 MG/1 ML VIAL/CARP IV PRN (10:01)
--- NOTE | 2025-06-26 10:01 | Anesthesiology Consultation ---
Date of Service June 26, 2025 Assessment & Plan ASA ASA3 Proposed Anesthesia Anesthesia Type: Labor Epidural Risk / Benefits Reviewed With: PT / POA / Parent / Guardian, Accepts Plan and Informed Consent Obtained History Height/Weight Height: 5 ft 3 in Weight: 80.739 kg Allergies Allergy/AdvReac Type Severity Reaction Status Date / Time No Known Allergies Allergy Verified 06/25/25 10:24 Medications Home Medications Medication Instructions Recorded Confirmed Last Taken infliximab-axxq 100 mg intravenous See Rx Instructions IV .COMPLEX #7 10/06/21 06/25/25 05/20/25 solution (Avs[facility]) ea prenat.vits,monica,xnj-shqp-amlox 1 tab PO DAILY 11/06/24 06/25/25 06/25/25 21:00 Active Medications Generic Name Dose Route Start Last Admin Trade Name Freq PRN Reason Stop Dose Admin Oxytocin 30 units in 500 mls @ 2 mls/hr 06/26/25 08:30 06/26/25 08:55 Pitocin 30 Units/Nss IV 06/28/25 08:29 0.12 units/hr .Q24H PRN 2 mls/hr Labor Induction/Augmentation Administration Protocol 0.12 UNITS/HR Lactated Ringer's 1,000 mls @ 125 mls/hr 06/26/25 08:30 06/26/25 10:31 Lr IV 06/28/25 08:29 125 mls/hr .Q8H PRN Infusion L&D Protocol Protocol Past Medical History Medical History Bronchitis Rash Yeast infection of the vagina COVID-19 (~03/23/22) Fatigue History of Clostridium difficile colitis Exercise / Class Metabolic Activity II 4-5 Yardwork/Stairs/Walk up hill Past Family History Family History Uncle Ulcerative colitis paternal Mother Family history of diabetes mellitus Hypertension Father Diverticulosis Heart disease Other No family history of adverse response to anesthesia Denies family history of Cervical cancer Ovarian cancer Crohn's disease Breast cancer Colorectal cancer Uterine cancer Past Surgical History Surgical History S/P fecal transplant S/P tooth extraction Status post myringotomy with insertion of tube History of tonsillectomy and adenoidectomy H/O colonoscopy (06/2019) multiple Past Anesthesia History No Hx of Anesthesia Complications and No Family Hx of Anesthesia Complications History of PONV No Hx of PONV and No Hx of Motion Sickness Social History Smoking Status: Never smoker Do You Dip or Chew Tobacco: No Hx Alcohol Use: No Hx Substance Use: No substance use type: does not use Review of Systems denies fever/cough/ colds/ chest pain/ SOB/ LEONARDA denies LEONARDA Physical Exam Vital Signs Last Vital Signs Temp 36.6 C 06/26/25 08:32 Pulse 106 H 06/26/25 11:12 Resp 20 06/26/25 08:32 BP 131/70 06/26/25 11:04 Pulse Ox 95 06/26/25 11:12 ENMT Mouth: no TMJ abnormality and no dentition abnormality Thyromental Distance: > or= 3.5 Finger Breadths Mallampati Class: II Neck neck extension not limited Respiratory normal respiratory effort; no respiratory distress Auscultation: lungs clear to auscultation bilaterally Cardiovascular Rate/Rhythm: regular rate and regular rhythm Neurologic moves all extremities Psychiatric Orientation: alert and oriented x 3 Testing Laboratory Results 06/26/25 08:42
[2025-06-26] MEDS: fentANYL 2 MCG/ML BUPIVacaine 0.125%-NSS 100ML BAG ONE (10:32)
[2025-06-26] MEDS: BUPIVACAINE 0.25% PF 30 ML VIAL ONE (10:39)
[2025-06-26] MEDS: LIDOCAINE 2%/EPINEPHRINE 1:200,000 20 ML PF ONE (10:39)
[2025-06-26] MEDS: SODIUM CHLORIDE 0.9% PF INJ 10 ML VIAL ONE (11:31)
[2025-06-26] MEDS: PENICILLIN GK 3 MU in DEXTROSE 5% 100 ML IV PRN (13:00)
[2025-06-26] MEDS: CALCIUM CARBONATE 500 MG CHEWABLE TAB PO PRN (14:22)
[2025-06-26] MEDS: ONDANSETRON INJ 2 MG/ML 2 ML VIAL IV PRN (14:23)
--- NOTE | 2025-06-26 16:53 | Delivery Summary ---
Vaginal Delivery Summary Date of Service June 26, 2025 Vaginal Delivery Summary and 2nd Degree LAC Patient induced postdates initially given Pitocin and artificial rupture of membranes for clear fluid after 4 hours from the first dose of penicillin for GBS she had requested epidural she but then rapidly progressed to fully dilated delivering a baby in occiput anterior position once the head was delivered mouth was suctioned with bulb gentle traction on the baby easy delivery no excessive force live vigorous male Cord clamped and cut cord blood obtained placenta removed with traction IV Pitocin started uterine tone improved small second-degree tear repaired with 3-0 Vicryl sponge Counts correct QBL 127 mL [facility] Vaginal Delivery Charge Delivery Type Details: and 2nd Degree LAC
[2025-06-26] MEDS ORDERED: HYDROCORTISONE ACETATE 25 MG SUPP PR PRN (17:03)
[2025-06-26] MEDS ORDERED: IBUPROFEN 600 MG TAB PO PRN (17:03)
[2025-06-26] MEDS: DIPHTHER/TETAN/PERTUS Vaccine (Tdap, Adol/Adult) 0.5mL IM ONE (17:07)
--- NOTE | 2025-06-26 17:38 | Anesthesia Procedure Note ---
Date of Service June 26, 2025 Anesthesia Post Epidural Note Vital Signs Vital Signs: Temp Pulse Resp BP Pulse Ox 36.8 C 105 H 20 126/58 L 94 06/26/25 14:38 06/26/25 17:22 06/26/25 14:38 06/26/25 17:22 06/26/25 16:42 Pain Intensity Bilateral Abdomen: Pain Intensity: 0 Notes Mental Status: alert / awake / arousable Nausea / Vomiting: adequately controlled Pain: adequately controlled Airway Patency, RR, SpO2: stable & adequate BP & HR: stable & adequate Hydration State: stable & adequate Neuraxial Anesthesia: was administered and sensory block is resolving Anesthetic Complications: no major complications apparent and Pt Satisfied with anesthetic care Epidural: Removed without complications and With tip intact
[2025-06-26] MEDS: BENZOCAINE 20% SPRY 85 APPLN/85 GM CAN EXT PRN (19:23)
[2025-06-26] MEDS: DOCUSATE SODIUM 100 MG CAP PO SCH (21:13)
--- NOTE | 2025-06-27 07:41 | Obstetrical Progress Note ---
Date of Service June 27, 2025 Assessment & Plan (1) Post-dates : Spontaneous vaginal delivery day 1 she is doing well with no concerns no extremity pain minimal bleeding she is breast-feeding she is unsure if she wants to go home today this to be decided later Subjective Ambulation: ambulating normally Voiding: no voiding problems Passing Gas:: Yes Diet Tolerance:: regular diet Physical Exam Constitutional WD/WN, vitals as above well developed and well nourished Respiratory normal respiratory effort, lungs clear to auscultation normal respiratory effort Cardiovascular RRR, no murmur, no edema Gastrointestinal (Abdomen) normal bowel sounds, soft, nontender, no hepatosplenomegaly Results & Data Vital Signs (Past 12 Hours) Vital Signs Temp Pulse Pulse Resp BP Pulse Ox O2 Del Method 06/27/25 03:35 98.2 F 82 18 125/73 96 Room Air 06/26/25 22:32 98.6 F 96 H 17 132/78 Room Air 06/26/25 20:50 Room Air 06/26/25 20:50 98.6 F 86 16 111/71 96 Room Air
[2025-06-27] MEDS: PRENATAL VITAMIN 1 TAB PO SCH (07:46)
[2025-06-27] MEDS: ACETAMINOPHEN 325 MG TAB PO PRN (08:52)
[2025-06-27 09:46] LABS: Hematocrit (blood only) 34.2 % (37.0-47.0); Hemoglobin 11.9 g/dL (12.0-16.0); Mean Corpuscular Hemoglobin 31.2 pg (25.0-34.0); Mean Corpuscular Volume 89.8 fL (80.0-100.0); Platelet Count 117 K/uL (130-400); RDW Standard Deviation 42.8 fL (36.4-46.3); Red Blood Count 3.81 M/uL (4.20-5.40); White Blood Count 16.57 K/ul (4.8-10.8)
[2025-06-28 06:57] LABS: Hematocrit (blood only) 34.8 % (37.0-47.0); Hemoglobin 12.1 g/dL (12.0-16.0)
--- NOTE | 2025-06-28 07:16 | Obstetrical Progress Note ---
Date of Service June 28, 2025 Assessment & Plan (1) Post-dates : (2) Vaginal bleeding during : (3) Group B streptococcal infection during : (4) Normal spontaneous vaginal delivery: Plan 29 yo post- day 2 s/p Fells well today. Vital signs stable Continue post- care Encourage ambulation and Pain controlled with ibuprofen Hgb stable Discharge home today, follow up with Dr. Otero in 6 weeks. Admission and Anticipated Discharge Date Admission Date: June 26, 2025 Supervising Physician Co-Signing Physician Notes Resident Physician Supervision Note: I interviewed and examined the patient. Discussed with Dr. Johnston and agree with findings and plan as documented in the note. Any exceptions or clarifications are listed here: PPD2 doing well, DC home. Documented By: Rebekah Leroy, DO [place] 29 yo post- day 2 s/p Ambulation: ambulating normally Voiding: no voiding problems Passing Gas:: Yes Diet Tolerance:: regular diet Lochia:: Small Feeding Type:: breast feeding Current Pain Level:Slight pain. Resting comfortably this AM in NAD. Denies YOON, CP, SOB, N/V/D, LE pain/swelling. Review of Systems Review of Systems: As per HPI. Physical Exam Physical Exam: General: patient resting comfortably, NAD, non-toxic in appearance, AA&O x 4, answers questions appropriately. Skin: warm, dry, intact HEENT: NC/AT, anicteric sclera, conjunctiva without injection, moist mucus membr anes. Heart: +S1/S2, regular, no m/r/g Lungs: equal air entry bilaterally, no rales/rhonchi/wheezes Abd: +BS, soft, NT/ND, uterine fundus firm at umbilicus. Ext: warm, no clubbing/cyanosis or edema, Christine's neg. Results & Data Vital Signs (Past 12 Hours) Vital Signs Temp Pulse Resp BP Pulse Ox O2 Del Method 06/28/25 03:40 36.6 C 70 20 114/73 97 Room Air 06/27/25 19:20 Room Air 06/27/25 19:20 36.6 C 83 18 112/67 97 Room Air Resident Activity Tracking Resident Involvement: Resident Care Provided Care Provided: Adult [facility]
[2025-06-28 08:03] VITALS: BP 130/78; RESP 16; TEMP 97.5; O2SAT 96
[2025-06-28 08:06] VITALS: PULSE 70
== END 2025-06-28 10:10 | disposition home or self-care (01) | DRG 806 ==
LOC: 4S1 08:25 → 4E2 19:30